=== PATIENT | male | born 2005 | race Caucasian/White ===

== ENCOUNTER 2024-10-07 22:30 | Emergency (ER) | payer SELFPAY ==
[~2024-10-07] VITALS: Ht 170.2 cm; Wt 62.0 kg
[2024-10-07 22:34] VITALS: O2SAT 96
[2024-10-08 00:47] LABS: BASOPHILS % 0.8 % (0.0-2.0); EOSINOPHILS % 0.4 % (0.0-5.0); HEMOGLOBIN. 17.2 g/dL (14.0-18.0); LYMPHOCYTES % 24.5 % (20.0-50.0); MEAN CORPUSCULAR HEMOGLOBIN 29.5 pg (28.0-32.0); MEAN CORPUSCULAR HGB CONC 33.7 g/dL (31.0-37.0); MEAN CORPUSCULAR VOLUME 87.6 fL (80.0-94.0); MEAN PLATELET VOLUME 7.6 fl (7.4-10.4); MONOCYTES % 7.7 % (2.0-8.0); NEUTROPHILS % 66.6 % (40.0-76.0); PLATELET 424 x1000/uL (130-400); RED BLOOD CELL COUNT 5.82 mill/uL (4.7-6.1); RED CELL DISTRIBUTION WIDTH 14.2 % (11.6-14.6)
[2024-10-08 00:53] LABS: CHLORIDE 106 mEq/L (98-107); POTASSIUM 3.5 mEq/L (3.5-5.1); SODIUM 141 mEq/L (136-145)
[2024-10-08 00:54] LABS: *AMPHETAMINES SCREEN URINE NEGATIVE (NEGATIVE); *BARBITURATES SCREEN URINE NEGATIVE (NEGATIVE); *BENZODIAZEPINES SCREEN URINE PRESUMPTIVE POSITIVE (NEGATIVE); *COCAINE SCREEN URINE NEGATIVE (NEGATIVE); CANNABINOID URINE SCREEN NEGATIVE (NEGATIVE); CARBON DIOXIDE 28 mEq/L (21-32); ECSTASY MDMA SCREEN URINE NEGATIVE (NEGATIVE); METHADONE URINE SCREEN NEGATIVE (NEGATIVE); OPIATES URINE SCREEN NEGATIVE (NEGATIVE); PHENCYCLIDINE URINE SCREEN NEGATIVE (NEGATIVE)
[2024-10-08 00:55] LABS: CALCIUM 10.4 mg/dL (8.7-10.4)
[2024-10-08 00:59] LABS: CREATININE 1.1 mg/dL (0.6-1.3); GLUCOSE 58 mg/dL (70-105); UREA NITROGEN BLOOD 13 mg/dL (9-23)
[2024-10-08 01:00] LABS: ETHANOL BLOOD 14 mg/dL (<10)
[2024-10-08 01:01] LABS: ACETAMINOPHEN 2 ug/mL (10-30)
[2024-10-08] MEDS: OLANZAPINE 10 MG/VIAL IM ONE (01:15)
[2024-10-08 02:45] VITALS: BP 118/69; PULSE 75; RESP 16; TEMP 36.94740; O2SAT 100
== END 2024-10-08 02:48 | disposition home or self-care (01) ==
LOC: ER 22:30
DX: F43.0 Acute stress reaction (principal); R45.851 Suicidal ideations
CPT/HCPCS: 99283; 80305; 80048; 80307; 80329; 80320; 85025; 36415; 96372; J3490; G0480

== ENCOUNTER 2025-05-19 10:05 | Emergency (ER) | payer MEDICAID ==
[~2025-05-19] VITALS: Ht 172.7 cm; Wt 72.5 kg
[2025-05-19 10:07] VITALS: O2SAT 99
[2025-05-19] MEDS ORDERED: LORA10TA7 MT (10:36)
[2025-05-19] MEDS ORDERED: PERM60CR4 TP (10:36)
[2025-05-19 10:55] VITALS: BP 128/62; PULSE 76; RESP 16; TEMP 36.7; O2SAT 100
== END 2025-05-19 11:09 | disposition home or self-care (01) ==
LOC: ER 10:47
DX: B86 Scabies (principal)
CPT/HCPCS: 99282